=== PATIENT | male | born 1980 | race Hispanic/Latino ===

== ENCOUNTER 2025-02-20 05:53 | Day surgery (SDC) | payer OTHER ==
[2025-02-17 09:29] LABS: BASOPHILS % (AUTO) 2.1 % (0.0-5.0); EOSINOPHILS # (AUTO) 0.13 K/uL (0.00-0.70); EOSINOPHILS % (AUTO) 2.8 % (0.0-8.0); HEMATOCRIT 45.7 % (42-54); IMMATURE GRANULOCYTE ABSOLUTE 0.03 K/uL (0-1); LYMPHOCYTES # (AUTO) 1.3 K/uL (1.0-4.8); LYMPHOCYTES % (AUTO) 28.1 % (21.0-51.0); MEAN CORPUSCULAR HEMOGLOBIN 28.5 pg (27.0-33.0); MEAN CORPUSCULAR HGB CONC 33.3 g/dL (32.0-36.0); MEAN CORPUSCULAR VOLUME 85.7 fL (79-99); MONOCYTES # (AUTO) 0.4 K/uL (0.1-1.0); MONOCYTES % (AUTO) 8.4 % (3.0-13.0); NEUTROPHILS # (AUTO) 2.7 K/uL (1.8-7.7); PLATELET COUNT (AUTO) 232 K/uL (130-400); RED BLOOD CELL COUNT(AUTO) 5.33 MIL/uL (4.50-6.20); WHITE BLOOD COUNT (AUTO) 4.7 K/uL (4.8-10.8)
[2025-02-17 09:39] LABS: CREATININE 1.1 mg/dL (0.5-1.3); POTASSIUM 4.2 mmol/L (3.5-5.1)
[2025-02-17 09:42] LABS: PROTHROMBIN TIME 10.6 SEC (9.6-11.6)
[2025-02-17 09:43] VITALS: BP 121/74; PULSE 73; RESP 17; TEMP 98.1
[2025-02-17 09:44] LABS: PARTIAL THROMBOPLASTIN TIME 28.9 SEC (26.3-35.5)
[2025-02-20] VITALS (16 sets, daily range): BP systolic 111–143; BP diastolic 74–87; PULSE 59–78; RESP 12–18; TEMP 97.3–98
[~2025-02-20] VITALS: Ht 167.6 cm; Wt 109.6 kg
[~2025-02-20 05:53] MED LIST: HYDR-3830 PO; SERT-439 PO
[2025-02-20] MEDS: LACTATED RINGERS 1000ML 1,000 ML IV ONE (06:31)
[2025-02-20] MEDS: ceFAZolin SODIUM 2 GM VIAL ONE (06:31)
[2025-02-20] MEDS ORDERED: FAMOTIDINE 20MG VIAL IV ONE (06:39)
[2025-02-20] MEDS ORDERED: GABAPENTIN 300 MG CAPSULE ONE (06:39)
[2025-02-20] MEDS ORDERED: acetaMINOPHEN 100 ML ONE (06:39)
[2025-02-20] MEDS ORDERED: proPOFol 10 MG/ML 20ML VIAL IV ONE (06:46)
[2025-02-20] MEDS ORDERED: rocuRONium bROMide 10MG/1ML 5ML VL ONE (06:46)
[2025-02-20] MEDS ORDERED: LIDOCAINE PF 100MG/5ML (2%) SYRINGE 5ML ONE (06:46)
[2025-02-20] MEDS ORDERED: FENTanyl CITRate PF 50 MCG/1 ML 2ML VIAL ONE (06:47)
[2025-02-20] MEDS ORDERED: ketaMINE 50MG/ML SYRINGE 50 MG/ML DISP.SYRIN ONE (07:11)
[2025-02-20] MEDS ORDERED: dexaMETHasone SOD PHOSPHATE 10MG/ML 1ML VIAL ONE (07:14)
[2025-02-20] MEDS ORDERED: ondanSETRON 4MG INJ ONE (07:14)
[2025-02-20] MEDS ORDERED: ACET-2079 PO (07:23)
[2025-02-20] MEDS: BUPIvacaine/PF 0.5% 10ML VIAL ONE (07:40)
[2025-02-20] MEDS: morPHINE 2 MG SYG ONE (08:26)
--- NOTE | 2025-02-20 09:29 | NUR ---
Full and complete discharge instructions given to Patient and Family both verbally and in writing. Explained Surgical procedure precautions and follow up. Right wrist incision site clean dry and intact. No evidence of bleeding, bruising or hematoma. Neurovascularly intact. All questions answered. PIV removed with catheter tip intact. at bedside appearing supportive. W/C to POV with to home
--- NOTE | 2025-02-20 10:59 | OP ---
Operative Note: DATE OF PROCEDURE: 02/20/25 SURGEON: DEBORAH GOINS MD RECORDER HELPER GRAVITY PROSPECTING: Gale Bowers ANESTHESIA: General ANESTHESIOLOGIST/VARNISH DIPPER: Megan Rodarte PREOPERATIVE DIAGNOSIS: Right carpal tunnel syndrome POSTOPERATIVE DIAGNOSIS: Right carpal tunnel syndrome PROCEDURE: Right carpal tunnel release ESTIMATED BLOOD LOSS: None INDICATIONS: 44-year-old male with right carpal tunnel syndrome not responding to conservative management. After discussion of the risks, benefits, and alternatives, the patient voluntarily agreed to undergo the aforementioned procedure. DESCRIPTION OF PROCEDURE: Patient was properly identified in the preoperative holding area. Surgical site marking was verified and surgery consent reviewed. The patient was then taken to the operating room and placed in supine position on the OR table. After induction of general anesthesia, preoperative antibiotics were given, all bony prominences were well-padded, and a well padded tourniquet was applied but not inflated at this time. The right upper extremity was then prepped and draped in usual sterile fashion. Surgical timeout was done verifying correct surgery, side, site, and location to be performed. We then began the procedure by exsanguinating the arm using an Esmarch and inflating a tourniquet to 250 mmHg. We made an approximately 2 cm long incision at the ulnar border of the fourth digit, when flexed, on the midpalmar longitudinal crease. Here we came down sharply through the subcutaneous tissue and using a self retaining retractor as well as ragnelles we could visualize the deep tissue. We then identified the transverse carpal ligament and began to come through this a little bit at a time using a 15 blade with small amounts of pressure being applied. The ligament was then released. We directed our attention proximally where we spread above and below the remaining portion of the transverse carpal ligament to break up any adhesions and using a pair of Metzenbaum scissors we slid proximally and transected and the remaining proximal portion of the transverse carpal ligament. Distally, we placed our retractors to help a show the distal extent of the transverse carpal ligament, and we came through this carefully using a 15 blade until we identified the fat surrounding the palmar arch. We used a [place] elevator palpating both the proximal and distal directions to ensure the entire transverse carpal ligament had been released. We then thoroughly irrigated out this wound with normal saline and injected the surrounding tissue with half percent Marcaine plain. The wound was then closed with 3-0 nylon interrupted simple suture pattern. Soft sterile dressing was applied with Xeroform, 4 x 4's, and Coban. The tourniquet was then deflated. The patient was awakened from anesthesia. There were taken to the recovery room in stable condition. DEBORAH GOINS MD Feb 20, 2025 10:59
== END 2025-02-20 09:25 | disposition home or self-care (01) ==
LOC: DAH 05:53
PROVIDERS: ATTEND Student in an Organized Health Care Education/Training Program
DX: G56.01 Carpal tunnel syndrome, right upper limb (principal); M25.531 Pain in right wrist; F41.9 Anxiety disorder, unspecified; E66.9 Obesity, unspecified; Z79.01 Long term (current) use of anticoagulants; Z79.899 Other long term (current) drug therapy; Z68.37 Body mass index [BMI] 37.0-37.9, adult
CPT/HCPCS: 80048; 85025; 85610; 85730; 36415; 64721; A4663; J7120; J3490 ×3; J3010; J1100; J2270; J0665; J2003; J2704; J2405; J0690; A6223; A4649 ×2; A4930; A5120; A4215; A4223; A4222; A4221